=== PATIENT | male | born 1980 | race Two or more races ===

== ENCOUNTER 2021-04-15 12:14 | Emergency (ER) | payer SELFPAY ==
[~2021-04-15] VITALS: Ht 167.6 cm; Wt 85.3 kg
[2021-04-15 12:28] VITALS: BP 129/78
[2021-04-15] MEDS ORDERED: CYCL10TA2 PO (14:24)
[2021-04-15] MEDS ORDERED: NAPR-514 PO (14:24)
[2021-04-15] MEDS ORDERED: TRIA15OI TP (14:24)
--- NOTE | 2021-04-15 14:25 | PHYS DOC ---
Past Medical History Past Medical History: No Pertinent History Past Surgical History: No Surgical History Smoking Status: Current Every Day Smoker Alcohol Use: Occasionally General Adult EDM: Chief Complaint: NECK PAIN HPI: HPI: Patient is a 40 year old [place]orran-speaking male who presents to the ED today with 2 complaints. Patient states yesterday he noted an insect bite on the right elbow. He states this morning he woke up and he had neck pain with num bness and tingling to the right fingers patient denies any injuries.. Patient states symptoms are intermittent. Describes the neck pain as throbbing and intermittent worse on turning his neck to the right. Rates the neck pain as mild. Java Engineer line was used for [place] Review of Systems: Review of Systems: Constitutional: Denies fever or chills. [] Eyes: Denies change in visual acuity. [] HENT: Denies nasal congestion or sore throat. [] Respiratory: Denies cough or shortness of breath. [] Cardiovascular: Denies chest pain or edema. [] GI: Denies abdominal pain, nausea, vomiting, bloody stools or diarrhea. [] : Denies dysuria. [] Musculoskeletal: Reports neck pain. Denies back pain Integument: Reports insect bite to the right elbow Neurologic: Denies headache, focal weakness or sensory changes. [] Psychiatric: Denies depression or anxiety. [] Heart Score: C/O Chest Pain: N/A Risk Factors: Risk Factors: DM, Current or recent (<one month) smoker, HTN, HLP, family history of CAD, obesity. Risk Scores: Score 0 - 3: 2.5% MACE over next 6 weeks - Discharge Home Score 4 - 6: 20.3% MACE over next 6 weeks - Admit for Clinical Observation Score 7 - 10: 72.7% MACE over next 6 weeks - Early Invasive Strategies Allergies: Allergies: Allergies Coded Allergies Type Severity Reaction Last Updated Verified No Known Drug Allergies 04/15/21 No Physical Exam: PE: Constitutional: Well developed, well nourished, no acute distress, non-toxic appearance. [] HENT: Normocephalic, atraumatic, bilateral external ears normal, oropharynx moist, no oral exudates, nose normal. [] Eyes: PERRLA, EOMI, conjunctiva normal, no discharge. [] Neck: Normal range of motion, no tenderness, supple, no stridor. [] Cardiovascular:Heart rate regular rhythm, no murmur [] Lungs & Thorax: Bilateral breath sounds clear to auscultation [] Abdomen: Bowel sounds normal, soft, no tenderness, no masses, no pulsatile masses. [] Skin: Right inner elbow with a tiny puncture wound, no streaking, no necrosis. Full range of motion to the right upper extremity. Back: No tenderness, no CVA tenderness. [] Extremities: No tenderness, no cyanosis, no clubbing, ROM intact, no edema. [] Neurologic: Alert and oriented X 3, normal motor function, normal sensory function, no focal deficits noted. Cranial nerves II through XII intact Psychologic: Affect normal, judgement normal, mood normal. [] Current Patient Data: Vital Signs: Vital Signs Date Time Temp Pulse Resp B/P (MAP) Pulse Ox O2 Delivery O2 Flow Rate FiO2 04/15/21 12:28 98.2 74 18 129/78 (95) 98 Room Air 98.2 EKG: EKG: [] Radiology/Procedures: Radiology/Procedures: [] Course & Med Decision Making: Course & Med Decision Making Pertinent Labs and Imaging studies reviewed. (See chart for details) This is a 40-year-old male patient presented to the ED today complaining of an insect bite to the right inner elbow, area does not appear infected. Discharged with Ann Chinedu cream. Also complaining of neck pain with numbness and tingling to the right upper extremity, symptoms began when he woke up this morning. Likely radicular symptoms. Discharge to home. Supportive care measures also recommended. Franco Disclaimer: Franco Disclaimer: This electronic medical record was generated, in whole or in part, using a voice recognition dictation system. Departure Departure Impression: Primary Impression: Torticollis Additional Impressions: Insect bite Qualified Codes: S40.861A - Insect bite (nonvenomous) of right upper arm, initial encounter; W57.XXXA - Bitten or stung by nonvenomous insect and other nonvenomous arthropods, initial encounter Cervical radicular pain Disposition: HOME / SELF CARE / HOMELESS Condition: STABLE Referrals: NO PCP (PCP) Follow-up with your doctor in 1 to 2 weeks Patient Instructions: Cervical Radiculopathy, [id number], Insect Bite, [id number] Additional Instructions: You were evaluated in the emergency room for neck pain and insect bite to the right inner elbow. Use the prescribed medications as ordered. Consider heating pad for your neck. Follow-up with your doctor in 1 to 2 weeks Scripts Naproxen (NAPROXEN) 500 Mg Tablet 1 TAB PO BID for pain for 30 Days, #60 TAB 0 Refills Prov: TATIANA GRANADOS APRN 04/15/21 Cyclobenzaprine Hcl (CYCLOBENZAPRINE HCL) 10 Mg Tablet 1 TAB PO TID, #30 TAB Prov: TATIANA RGANADOS APRN 04/15/21 Triamcinolone Acetonide (TRIAMCINOLONE ACETONIDE 0.1% OINT) 15 Gm Oint...g. 1 YE TP BID for WOUND CARE, #1 EACH Prov: TATIANA GRANADOS APRN 04/15/21 TATIANA GRANADOS APRN Apr 15, 2021 14:24
== END 2021-04-15 14:28 | disposition home or self-care (01) ==
LOC: ER 12:14
DX: S40.861A Insect bite (nonvenomous) of right upper arm, initial encounter (principal); M43.6 Torticollis; M54.12 Radiculopathy, cervical region; F17.200 Nicotine dependence, unspecified, uncomplicated; W57.XXXA Bitten or stung by nonvenomous insect and other nonvenomous arthropods, initial encounter; Y93.89 Activity, other specified; Y92.89 Other specified places as the place of occurrence of the external cause; Y99.8 Other external cause status
CPT/HCPCS: 99283